=== PATIENT | female | born 1950 | race Caucasian/White ===

== ENCOUNTER 2017-01-14 11:55 | Day surgery (SDC) | payer MEDICARE, OTHER ==
[~2017-01-14] VITALS: Ht 160 cm; Wt 65.7 kg
[~2017-01-14 11:55] MED LIST: ALBUTEROL0.83 MG/ML IH; ALL DAY ALLERGY10 MG PO; ALLEGRA 180MG180 MG PO; BROVANA15 MCG/2 M IH; BUDESONIDE0.25 MG/2 IH; CLEOCIN HCL300 MG PO; DALIRESP500 MCG PO; DEPO MEDROL80 MG/ML IJ; DEPO MEDROL80 MG/ML IV; ERY-TAB250 M1 PO; ERYTHROMYCIN250 M2 PO; MAXIPIME2 GM IV; MELATONIN5 M2 PO; POTASSIUM GLUC550 M1 PO; POTASSIUM IODID PO; POTASSIUM99 MG PO; PREDNISONE10 MG PO; PREDNISONE20 MG PO; PROAIR HFA0.09 MG/AC IH; PULMICORT0.5 MG/2 M IH; RT SPIRIVA18 MCG IH; SINGULAIR 110 MG/TAB PO; SPIRIVA18 MCG IH; SSKI1 GM/ML PO; THEO-24 20200 MG/CAP PO; THEOPHYLLINE200 M2 PO; ZITHROMAX 250M250 MG PO; ZYRTEC 10MG10 MG PO
[2017-01-14 13:00] VITALS: BP 129/62; PULSE 61; TEMP 98.5
[2017-01-14 13:30] VITALS: BP 78/46; PULSE 66; TEMP 98.4
[2017-01-14 13:45] VITALS: BP 88/57; PULSE 57
[2017-01-14 14:00] VITALS: BP 79/54; PULSE 60
[2017-01-14 14:15] VITALS: BP 100/63; PULSE 66
[2017-01-14 16:11] VITALS: BP 100/49; PULSE 68
== END 2017-01-14 14:25 | disposition home or self-care (01) ==
LOC: SDCO 11:55
DX: R06.00 Dyspnea, unspecified (principal); R05 Cough; J44.9 Chronic obstructive pulmonary disease, unspecified; Z79.899 Other long term (current) drug therapy; Z87.891 Personal history of nicotine dependence; Z87.01 Personal history of pneumonia (recurrent); J45.909 Unspecified asthma, uncomplicated; Z79.52 Long term (current) use of systemic steroids; Z99.81 Dependence on supplemental oxygen
CPT/HCPCS: J2704; J2920; J7120

== ENCOUNTER 2018-07-10 09:02 | Outpatient (CLI) | payer MEDICARE, OTHER ==
[~2018-07-10] VITALS: Ht 160 cm; Wt 68.4 kg
[2018-07-10] VITALS (15 sets, daily range): BP systolic 119–160; BP diastolic 64–86; PULSE 58–74; TEMP 98.4
[~2018-07-10 09:02] MED LIST changes: +SPIRIVA RE2.5 MCG/Ac IH
== END 2018-07-10 13:57 | disposition home or self-care (01) ==
LOC: COL.RAD 09:02
DX: R91.8 Other nonspecific abnormal finding of lung field (principal)
CPT/HCPCS: J2250; J3010

== ENCOUNTER → 2018-11-17 | Outpatient (CLI) | payer MEDICARE, OTHER ==
[~2018-11-17] VITALS: Ht 160 cm; Wt 66.1 kg
[~2018-11-17] MED LIST changes: +ZITHROMAX500 M2 PO
[2018-11-17 09:57] VITALS: BP 137/62; PULSE 67
--- NOTE | 2018-11-17 12:02 | NUR ---
pt procedure was cancelled bu dr steele
== END ==
LOC: COL.RAD 09:30
DX: R91.1 Solitary pulmonary nodule (principal)